=== PATIENT | male | born 1975 | race Caucasian/White ===

== ENCOUNTER 2021-10-02 09:54 | Outpatient (CLI) | payer BC ==
[2021-10-02] MEDS ORDERED: Gadobenate Dimeglumine 529 MG/1 ML (20ML VIAL) ONE (11:25)
[2021-10-02] MEDS ORDERED: Lidocaine 1% PF 10 ML AMP ONE (11:25)
[2021-10-02] MEDS ORDERED: EPINEPHrine 1 MG/ML AMP ONE (11:25)
[2021-10-02] MEDS ORDERED: Iopamidol 300 61% 100 ML VIAL FS ONE (11:25)
== END 2021-10-02 09:55 | disposition home or self-care (01) ==
LOC: MRI 09:54
PROVIDERS: ATTEND Orthopaedic Surgery
DX: M24.9 Joint derangement, unspecified (principal); M75.122 Complete rotator cuff tear or rupture of left shoulder, not specified as traumatic
CPT/HCPCS: 23350